=== PATIENT | male | born 1985 | race Caucasian/White ===

== ENCOUNTER 2019-04-03 17:19 | Emergency (ER) | payer BC ==
[~2019-04-03] VITALS: Ht 170.2 cm; Wt 81.6 kg
[2019-04-03] MEDS ORDERED: BUPROPION XL150 MG ORAL (17:24)
[2019-04-03] MEDS ORDERED: SEROQUEL25 MG ORAL (17:24)
[2019-04-03] MEDS ORDERED: Ketorolac 60mg Inj IM ONE (17:30)
[2019-04-03] MEDS ORDERED: Bupivacaine 0.5% Inj 30 ml vial INJ ONE (17:30)
[2019-04-03] MEDS ORDERED: Dexamethasone 4mg/ml vial IM ONE (17:30)
--- NOTE | 2019-04-03 17:32 | Emergency Room Report ---
History of Present Illness General Chief Complaint: Neck Pain Source: Patient Present Illness HPI 33-year-old male history of bipolar disorder presents with 2 days of neck pain, he states he was working out the week before he thinks he may have strained his neck, no focal weakness, he states movement aggravates his pain he describes the pain as sharp/achy, moderate in nature, alleviated by rest. Allergies: Coded Allergies: No Known Allergies (Unverified , 04/03/19) Patient History Past Medical History: see triage record Reviewed Nursing Documentation: PMH: Agreed; PSxH: Agreed Nursing Documentation-PMH Past Medical History: No History, Except For History Of Psychiatric Problem: Yes - bipolar Review of Systems All Other Systems: negative except mentioned in HPI Physical Exam Vital Signs Date Time Temp Pulse Resp B/P (MAP) Pulse Ox O2 Delivery O2 Flow Rate FiO2 04/03/19 17:21 98.4 74 18 130/73 (92) 96 Room Air Sp02 EP Interpretation: reviewed, normal General Appearance: well appearing, no apparent distress, alert Head: normocephalic, atraumatic Eyes: bilateral eye PERRL, bilateral eye EOMI ENT: uvula midline, moist mucus membranes Neck: supple, thyroid normal, supple/symm/no masses, tender lateral - Left tenderness to palpation, trapezius Respiratory: lungs clear, no respiratory distress, no retraction, no accessory muscle use Cardiovascular #1: normal peripheral pulses, regular rate, rhythm, no edema, no gallop, no murmur Gastrointestinal: non tender, soft, no guarding, no rebound Musculoskeletal: normal inspection Neurologic: alert, oriented x3 Psychiatric: mood/affect normal Skin: no rash, warm/dry Procedures Additional Procedure Procedure Narrative Injection of local anesthetic, 5 mL of 0.5% Marcaine, and 3 mL of 1% lidocaine, to the trapezius, area prepped with ChloraPrep no complication Consent was obtained verbally witnessed by Fernando MURGUIA Medical Decision Making Diagnostic Impression: Primary Impression: Neck pain Additional Impression: Muscle strain ER Course Patient with most likely likely a muscle strain, patient given Toradol, Decadron , anti-inflammatories injected, pain, Marcaine, injected, patient tolerated procedure well, pain well controlled, disposition home with return precautions Last Vital Signs Date Time Temp Pulse Resp B/P (MAP) Pulse Ox O2 Delivery O2 Flow Rate FiO2 04/03/19 17:21 98.4 74 18 130/73 (92) 96 Room Air Disposition: HOME, SELF-CARE Condition: Improved Scripts Naproxen* (NAPROSYN*) 250 Mg Tablet 250 MG ORAL BID PRN for For Pain, #20 TAB 0 Refills Prov: Mars Chung MD 04/03/19 Methocarbamol* (ROBAXIN-750*) 750 Mg Tablet 750 MG PO QID, #28 TAB 0 Refills Prov: Mars Chung MD 04/03/19 Patient Instructions: Acute Torticollis, Cervical Sprain, [id number] Additional Instructions: The patient was provided with discharge instructions, notified to follow-up with a primary care doctor and or specialist in the next 24-48 hours, and to return to the ED if they have worsening of their symptoms. Please note that this report is being documented using FittingRoom technology. This can lead to erroneous entry secondary to incorrect interpretation by the dictating instrument. Mars Chung MD Apr 03, 2019 17:32
--- NOTE | 2019-04-03 17:32 | NUR ---
ED Nurse Note: pt walked in c/o neck pain x 2 days, pt reports he went to urgent care and cT was done, was dx neck spasms but pain didnt go away and came to ED. pt reports he was moving house around. pt AA&ox4 gcs=15, skin warm and dry, cms intact bue/ble, no obvious deformity nor contusion nor wound, will cont monitor.
[2019-04-03 17:33] VITALS: BP 130/73
[2019-04-03] MEDS ORDERED: NAPROXEN250 MG ORAL (17:36)
[2019-04-03] MEDS ORDERED: ROBAXIN-750750 MG PO (17:36)
[2019-04-03] MEDS ORDERED: Lidocaine 1% Plain 30 ml INJ ONE (17:45)
--- NOTE | 2019-04-03 17:49 | NUR ---
ED Nurse Note: pt cleared to be d/c per ERMD, pt discharge and aftercare instruction provided w/ prescription, pt education done via discussion and handout, pt advised to follow up with pcp or return to ed if changes in condition, pt vss, ambulatory w/ steady gait, left w/ all belongings.
[2019-04-03 17:50] VITALS: BP 128/75
== END 2019-04-03 17:50 | disposition home or self-care (01) ==
LOC: EMR 17:32
DX: M54.2 Cervicalgia (principal); T14.8XXA Other injury of unspecified body region, initial encounter; X58.XXXA Exposure to other specified factors, initial encounter; Y92.9 Unspecified place or not applicable; F31.9 Bipolar disorder, unspecified
CPT/HCPCS: 96372; 99283; J1100; J2001; J3490

== ENCOUNTER 2019-04-10 14:56 | Emergency (ER) | payer OTHER ==
[~2019-04-10] VITALS: Ht 182.9 cm; Wt 83.9 kg
[~2019-04-10 14:56] MED LIST: BUPROPION XL150 MG ORAL; NAPROXEN250 MG ORAL; ROBAXIN-750750 MG PO; SEROQUEL25 MG ORAL
[2019-04-10 15:00] VITALS: BP 127/81
--- NOTE | 2019-04-10 15:20 | NUR ---
ED Nurse Note: Patient ambulated in to ER from home due to neck pain 02/14. Patient denied injury. Patient alert and oriented x4 and ambulatory. Skin clean and intact. Calm and cooperative. No acute distress noted at this time.
[2019-04-10] MEDS ORDERED: LAMICTAL150 MG ORAL (15:22)
[2019-04-10] MEDS ORDERED: REXULTI2 MG PO (15:22)
--- NOTE | 2019-04-10 15:32 | Emergency Room Report ---
History of Present Illness General Chief Complaint: Neck Pain Source: Patient Present Illness HPI Patient is a 33-year-old male presenting for continued left neck and arm pain. He was seen in this emergency department 1 week prior for the same complaint. He was given Motrin and Robaxin which he states did not help. He states that he went to urgent care as well where CT scan was done and showed straightening consistent with spasm. He was also given prescription for Llewellyn which she states mildly helped. Pain is now an 8 out of 10 dull ache and does not radiate. Worse with movement. He denies any known injury that may have caused the symptoms. He denies numbness, tingling, fever, chills, CP Allergies: Coded Allergies: No Known Allergies (Unverified , 04/03/19) Patient History Past Medical History: see triage record Pertinent Family History: none Reviewed Nursing Documentation: PMH: Agreed; PSxH: Agreed Nursing Documentation-PMH Past Medical History: No Stated History Review of Systems All Other Systems: negative except mentioned in HPI Physical Exam Vital Signs Date Time Temp Pulse Resp B/P (MAP) Pulse Ox O2 Delivery O2 Flow Rate FiO2 04/10/19 15:16 99.0 90 16 128/75 (92) 94 Room Air Sp02 EP Interpretation: reviewed, normal General Appearance: no apparent distress, alert, GCS 15, non-toxic Head: normocephalic, atraumatic Eyes: bilateral eye normal inspection, bilateral eye PERRL Neck: full range of motion, no bony tend, tender lateral Musculoskeletal: back normal, gait/station normal, normal range of motion, tender - L cervical paraspinal muscles Neurologic: alert, oriented x3, responsive, motor strength/tone normal, sensory intact, speech normal Psychiatric: judgement/insight normal, memory normal, mood/affect normal, no suicidal/homicidal ideation Skin: no rash Procedures Splinting Splinting : Consent: Verbal Location: L arm Pre-Made Type: sling Pre-Proc Neuro Vasc Exam: normal Post-Proc Neuro Vasc Exam: normal Patient Tolerated: Well Complications: None Medical Decision Making PA Attestation Dr. Chung is my supervising physician. Patient management was discussed with my supervising physician Diagnostic Impression: Primary Impression: Neck pain ER Course Patient is a 33-year-old male presenting for continued left neck and arm pain. Ddx considered include but not limited to sprain/strain, fracture, contusion PE: Vitals stable. NAD No midline tenderness or step-offs. Full active range of motion is intact There is tenderness to palpation over left paraspinal muscles. L shoulder strength 5/5 L arm placed in sling CURES report checked. Pt is given limited prescription for norco and motrin. He is told to F/u with ortho and PCP brianne. Ortho info given. ER precautions given Last Vital Signs Date Time Temp Pulse Resp B/P (MAP) Pulse Ox O2 Delivery O2 Flow Rate FiO2 04/10/19 15:16 99.0 90 16 128/75 (92) 94 Room Air Status: improved Disposition: HOME, SELF-CARE Condition: Improved Scripts Hydrocodone Bit/Acetaminophen 5-325* (NORCO 5-325*) 1 Each Tablet 1 TAB ORAL Q6H PRN for For Pain, #8 TAB 0 Refills Prov: KARL NGO P.A. 04/10/19 Ibuprofen* (MOTRIN*) 600 Mg Tablet 600 MG ORAL Q8H PRN for For Pain, #30 TAB 0 Refills Prov: TERMICAHANEBONYY P.A. 04/10/19 KARL NGO P.AIglesia Apr 10, 2019 15:32
[2019-04-10] MEDS ORDERED: IBUPROFEN600 MG ORAL (15:39)
[2019-04-10] MEDS ORDERED: NORCO 5-325 TA1 EACH ORAL (15:39)
--- NOTE | 2019-04-10 15:50 | NUR ---
ER DISCHARGE NOTE: Patient is cleared to be discharged per ERPA after sling applied on Lt arm, pt is aox4, on room air, with stable vital signs. pt was given dc and prescription instructions, pt was able to verbalize understanding, pt id band removed. pt is able to ambulate with steady gait. pt took all belongings.
[2019-04-10 15:51] VITALS: BP 118/79
== END 2019-04-10 15:51 | disposition home or self-care (01) ==
LOC: EMR 15:30
DX: M54.2 Cervicalgia (principal); M79.602 Pain in left arm
CPT/HCPCS: 99282